=== PATIENT | female | born 1985 | race Asian ===

== ENCOUNTER 2021-12-22 00:22 | Emergency (ER) | payer OTHER, MEDICAID ==
[~2021-12-22] VITALS: Ht 157.5 cm; Wt 74.8 kg
--- NOTE | 2021-12-22 00:29 | NUR ---
LON VALERIO TAKEN TO BED #5
[2021-12-22 00:31] VITALS: BP 106/73
[2021-12-22] MEDS ORDERED: diphenhydrAMINE 50 MG/ML VIAL IM ONE (00:40)
[2021-12-22] MEDS ORDERED: HALOPERIDOL IM 5 MG/ML VIAL IM ONE (00:40)
[2021-12-22] MEDS ORDERED: LORazepam 2 MG/ML VIAL IM ONE (00:50)
[2021-12-22 01:04] LABS: BASOPHILS # (AUTO) 0.1 K/uL (0.00-0.22); BASOPHILS % (AUTO) 0.5 % (0.0-2.0); EOSINOPHILS # (AUTO) 0.2 K/uL (0-0.4); EOSINOPHILS % (AUTO) 1.5 % (0.0-4.0); HEMATOCRIT 40.4 % (36-48); HEMOGLOBIN 13.5 g/dL (12.0-16.0); LYMPHOCYTES # (AUTO) 2.1 K/uL (2.5-16.5); LYMPHOCYTES % (AUTO) 19.4 % (20.5-51.1); MEAN CORPUSCULAR HEMOGLOBIN 29 pg (27-31); MEAN CORPUSCULAR HGB CONC 33 g/dL (33-37); MEAN CORPUSCULAR VOLUME 86.8 fL (80-94); MONOCYTES # (AUTO) 0.7 K/uL (0.8-1.0); MONOCYTES % (AUTO) 6.3 % (1.7-9.3); NEUTROPHILS % (AUTO) 72.3 % (42.2-75.2); PLATELET COUNT (AUTO) 361 K/uL (140-450); RED BLOOD CELL COUNT(AUTO) 4.65 MIL/uL (4.20-5.40); RED CELL DISTRIBUTION WIDTH 13.9 % (11.6-13.7); WHITE BLOOD COUNT (AUTO) 11.1 K/uL (4.8-10.8)
[2021-12-22 01:30] LABS: ALBUMIN 3.8 g/dL (3.4-5.0); ANION GAP 12.7 (8-16); ASPARTATE AMINOTRANSFERASE 28 U/L (15-37); CARBON DIOXIDE 25.1 mmol/L (21-32); CHLORIDE 103 mmol/L (98-107); CREATININE 0.7 mg/dL (0.6-1.3); GFR ARICAN-AMERICAN 120 mL/min (>90); GLUCOSE 109 mg/dL (74-106); POTASSIUM 3.8 mmol/L (3.5-5.1); SODIUM SERUM 137 mmol/L (136-145); TOTAL BILIRUBIN 0.5 mg/dL (0.0-1.0); UREA NITROGEN, BLOOD 13 mg/dL (7-18)
[2021-12-22 02:07] LABS: SALICYLATE < 2.8 mg/dL (2.8-20.0)
--- NOTE | 2021-12-22 02:24 | NUR ---
PT WOKE UP AND STATED SHE WAS HUNGRY. YNES AND JOSE PROVIDED. PT SAT UP IN BED TO EAT. ALL PT NEEDS MET AT THIS TIME
[2021-12-22 02:32] LABS: ACETAMINOPHEN < 0.5 ug/ml (10-30)
--- NOTE | 2021-12-22 02:55 | NUR ---
36 Y/O F BIB A . PT WAS FOUND WANDERING THE STREETS WITH ALOC.UPON ARRIVAL PT WAS CONFUSED A&0 X0. PT WAS STATING RANDOM PHRASES "WE ARE SINNERS" "TYREE WANTS ME HERE" PT KEPT REFERRING TO HERSELF IN THIRD PERSON. WHEN ASKED PATIENT ID SHE WAS HOMELESS SHE SAID " NO" OR " I DONT KNOW. PT WAS BEING VERY LOUD AND SHOUTING TYREE UNABLE TO CALM HER SELF DOWN. PT DENIES PAIN. PT IS AMBULATORY WITH EVEN AND STEADY GAIT. PATIENT POSITIONED FOR COMFORT; HOB ELEVATED; BEDRAILS UP X2; BED DOWN. ER MD MADE AWARE OF PT STATUS. PMH: POOR HISTORIAN , UNKNOWN ALLERIGES: UNKNOWN RX: UNKNOWN
--- NOTE | 2021-12-22 03:24 | NUR ---
Patient appears to be resting comfortably in bed. Vital Signs within normal limits. Respirations even and unlabored.
--- NOTE | 2021-12-22 04:22 | NUR ---
PT PROVIDED BRIEF, NEW GOWN AND PAD. PT STARTED PERIOD. PROVIDED TOWEL TO CLEAN UP BUT SHE REFUSED
--- NOTE | 2021-12-22 05:13 | NUR ---
WOKE PT UP . PT PROVIDED URINE SAMPLE. CHANGE DPT INTO GOWN. PROVIDED DIAPER AND PAD
[2021-12-22 05:18] LABS: APPEARANCE,URINE SL CLOUDY (CLEAR); BILIRUBIN,URINE 1+ (NEGATIVE); BLOOD, URINE 3+ (NEGATIVE); COLOR,URINE YELLOW (YELLOW); LEUKOCYTE ESTERASE ,URINE NEGATIVE (NEGATIVE); NITRITE, URINE NEGATIVE (NEGATIVE); UGLUCOSE NEGATIVE (NEGATIVE)
--- NOTE | 2021-12-22 05:30 | NUR ---
PT NOW ACTING APPROPIATELY. PT NO LONGER SHOUTING AND TALKING GIBBERISH. PT IS NOW SITTING QUIETLY ON BED.
[2021-12-22 05:31] LABS: RBC,URINE TOO NUMEROUS TO COUN /HPF (0-5); WBC,URINE 0-5 /HPF (0-5)
[2021-12-22 05:33] LABS: BARBITURATE, URINE NEGATIVE ng/ml (NEG <=200); BENZODIAZEPINE, URINE POSITIVE ng/mL (NEG <=200); CANNABINOID, URINE NEGATIVE ng/mL (NEG <=50); COCAINE, URINE NEGATIVE ng/mL (NEG <=300); OPIATE, URINE NEGATIVE ng/mL (NEG <=2000); PHENCYCLIDINE SCREEN,URINE NEGATIVE ng/mL (NEG <=25)
--- NOTE | 2021-12-22 07:27 | NUR ---
Pt report given to bibiana. Transfer of care at this time.
--- NOTE | 2021-12-22 07:30 | NUR ---
REPORT RECEIVED FROM JESSE ESPINOSA. ASSUMED CARE AT THIS TIME
--- NOTE | 2021-12-22 07:39 | NUR ---
PT AT REST AND SLEEPING. BED AT LOWEST POSITION ,BED RAILS UP x2
--- NOTE | 2021-12-22 08:19 | NUR ---
PT AWAKE , EATING BREAKFAST IN BED
--- NOTE | 2021-12-22 09:26 | NUR ---
PT FOUND HOVERING OVER BEDSIDE TOWER . FOUND WITH DRUGS, PT STATES BEING METH. SECURITY NOTIFIED
--- NOTE | 2021-12-22 10:50 | NUR ---
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
--- NOTE | 2021-12-22 11:00 | NUR ---
PT PUT ON 5150 HOLD BY TELEGRADY MORRISON DUE TO BEING "GREATLY DISABLED"
[2021-12-22] MEDS ORDERED: OLANZapine 5 MG TAB PO SCH (11:18)
--- NOTE | 2021-12-22 11:56 | NUR ---
CALLED NATACHA CINTRON TO HAVE AN OFFICER DISPATCHED TO EVALUATE PATIENT FOR [address] DICKINSON RECOMMENDATION. STATED OFFICER WILL BE DISPATCHED SOON AVAILABLE.
--- NOTE | 2021-12-22 13:00 | NUR ---
PD AT BEDSIDE FOR EVALUATION
[2021-12-22] MEDS ORDERED: OLANZapine 5 MG ODT SL ONE (13:25)
--- NOTE | 2021-12-22 14:30 | NUR ---
PT AWAKE AND AT REST. PROVIDED WITH WARM BLANKET
--- NOTE | 2021-12-22 17:10 | NUR ---
REPORT GIVEN TO SHEYLA AT [facility]. AWAITING TRANSPORT.
--- NOTE | 2021-12-22 18:05 | NUR ---
PT PROVIDED WITH FOOD , EATING IN BED.
--- NOTE | 2021-12-22 19:25 | NUR ---
Patient to be transferred to [facility]. Is being transferred due to HIGH LEVEL OF CARE. Receiving facility has accepting physician and available space. ER physician has signed transfer form. Patient or responsible constitution party has agreed to transfer and signed form. Patient belongings inventoried and will be sent with patient. Copy of nursing notes, lab reports, EKG, Physicians Orders and X-rays to be sent with patient. Report called to SHEYLA VELAZQUEZ at receiving facility. [facility] ambulance service has been called for transfer. ETA is 20 .
[2021-12-22 19:28] VITALS: BP 120/54
--- NOTE | 2021-12-22 19:30 | NUR ---
[facility] AT BEDSIDE
--- NOTE | 2021-12-22 19:32 | NUR ---
PT TAKEN BY [facility] TO [facility]
[2021-12-23] MEDS ORDERED: OLANZapine 5 MG TAB PO SCH (09:00)
== END 2021-12-22 19:32 ==
LOC: MED 00:22
DX: F29 Unspecified psychosis not due to a substance or known physiological condition (principal); Z20.822 Contact with and (suspected) exposure to COVID-19; F41.9 Anxiety disorder, unspecified; F15.10 Other stimulant abuse, uncomplicated
CPT/HCPCS: 36415; 80053; 80305; 81001; 81025; 85025; 87086; 87426; 87635; 93005; 96372; 99285; C9803; G0480; G0482; J1200; J1630; J2060